=== PATIENT | male | born 1980 | race Caucasian/White ===

== ENCOUNTER 2019-05-01 11:10 | Emergency (ER) | payer BC ==
[2019-05-01] MEDS ORDERED: Sodium Chloride 0.9% 10 ML Syringe FLUSH PRN (11:13)
[2019-05-01] MEDS ORDERED: diphenhydrAMINE 50 MG/ML SDV IVPUSH ONE (11:13)
[2019-05-01] MEDS ORDERED: methylPREDNISolone Sodium Succinate 125 MG/2 ML SDV IVPUSH ONE (11:13)
[2019-05-01 15:21] VITALS: PULSE 90
[2019-05-01 15:34] VITALS: BP 129/72
--- NOTE | 2019-05-01 15:46 | EDM.PDOC ---
ED HPI GENERAL MEDICAL PROBLEM - General Chief Complaint: Allergic Reaction Stated Complaint: MEDICAL [facility] Time Seen by Provider: 05/01/19 11:13 Source of Information: Reports: Patient, EMS History Limitations: Reports: Altered Mental Status - History of Present Illness INITIAL COMMENTS - FREE TEXT/NARRATIVE: This patient was stung by a bee or wasp on the back of the neck shortly before coming in. He believes he was having an anaphylactic reaction and so gave himself to EpiPen injections. When EMS arrived they gave him Benadryl 25 mg IM. The patient when he arrived did relate that in the past when he had a bee sting reaction he became pretty much unresponsive. 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 Occipital Pain Score (Numeric/FACES): 8 - Related Data Allergies Allergy/AdvReac Type Severity Reaction Status Date / Time venom-honey bee Allergy Severe Anaphylactic Verified 11/10/16 13:02 [bee venom (honey bee)] Shock Home Meds: Home Meds Omeprazole 20 mg PO DAILY 04/18/16 [History] Past Medical History Gastrointestinal History: Reports: GERD - Past Surgical History GI Surgical History: Reports: Appendectomy Musculoskeletal Surgical History: Reports: Other (See Below) Dermatological Surgical History: Reports: Skin Graft, Other (See Below) Social & Family History - Tobacco Use Smoking Status *Q: Never Smoker - Caffeine Use Caffeine Use: Reports: Coffee - Recreational Drug Use Recreational Drug Use: No ED ROS ALLERGIC REACTION - Review of Systems Review Of Systems: Unable To Obtain (Patient is to listless and sedated to give her good review of systems) ED EXAM GENERAL NO PERIP PULSE - Physical Exam Exam: See Below Exam Limited By: Altered Mental Status General Appearance: Other (This patient seems listless and that even lethargic. He seems to be moderately sedated. However at times he is lying there with his eyes closed carrying on a conversation with the nurses. At other times when I examined him he barely responds to me at all. He said he can't open his eyes. I examined him by not forcing his) Eye Exam: Bilateral Eye: Conjunctival Injection, PERRL (Eyelids open. Pupils) Ears: Normal External Exam Nose: Normal Inspection Throat/Mouth: Normal Oropharynx (This very difficult to examine the pharynx because the patient won't open his mouth and fights me when I tried to do this with a tongue depressor) Head: Atraumatic Neck: Normal Inspection Respiratory/Chest: Lungs Clear Cardiovascular: Regular Rate, Rhythm, No Murmur GI/Abdominal: Non-Tender Back Exam: Normal Inspection Extremities: Normal Inspection Neurological: CN II-XII Intact, No Motor/Sensory Deficits, Other (Initially this patient seemed to be very lethargic but it would respond in conversation to the nurses. Later on he sitting up in bed he's had something to eat and seems to be pretty much a normal person) Skin Exam: Warm, Other (No obvious urticaria) Course - Vital Signs Last Recorded V/S: Last Vital Signs Temp 35.3 C 05/01/19 11:27 Pulse 90 05/01/19 13:10 Resp 20 05/01/19 15:10 BP 129/72 05/01/19 15:10 Pulse Ox 92 L 05/01/19 13:10 - Orders/Labs/Meds Orders: Active Orders 24 hr Category Date Time Status Saline Lock Insert [OM.PC] Urgent Oth 05/01/19 11:13 Ordered Labs: Laboratory Tests 05/01/19 05/01/19 Range/Units 12:50 12:50 WBC 14.8 H (4.5-11.0) K/uL RBC 5.16 (4.30-5.90) M/uL Hgb 15.2 H (12.0-15.0) g/dL Hct 44.5 (40.0-54.0) % MCV 86 (80-98) fL MCH 30 (27-31) pg MCHC 34 (32-36) % Plt Count 291 (150-400) K/uL Neut % (Auto) 86 H (36-66) % Lymph % (Auto) 11 L (24-44) % Cottle % (Auto) 4 (2-6) % Eos % (Auto) 0 L (2-4) % Baso % (Auto) 0 (0-1) % Sodium 143 (140-148) mmol/L Potassium 4.3 (3.6-5.2) mmol/L Chloride 106 (100-108) mmol/L Carbon Dioxide 27 (21-32) mmol/L Anion Gap 9.9 (5.0-14.0) mmol/L BUN 16 (7-18) mg/dL Creatinine 1.4 H (0.8-1.3) mg/dL Est Cr Clr Drug Dosing 68.05 mL/min Estimated GFR (MDRD) 57 L (>60) Glucose 134 H (74-106) mg/dL Calcium 8.9 (8.5-10.1) mg/dL Total Bilirubin 0.3 (0.2-1.0) mg/dL AST 34 (15-37) U/L ALT 67 (12-78) U/L Alkaline Phosphatase 65 (46-116) U/L Total Protein 7.2 (6.4-8.2) g/dL Albumin 3.8 (3.4-5.0) g/dL Globulin 3.4 (2.3-3.5) g/dL Albumin/Globulin Ratio 1.1 L (1.2-2.2) Meds: Medications Discontinued Medications Generic Name Dose Route Start Last Admin Trade Name Freq PRN Reason Stop Dose Admin Diphenhydramine HCl 50 mg 05/01/19 11:13 05/01/19 11:29 Benadryl IVPUSH 05/01/19 11:14 50 mg ONETIME ONE Administration Methylprednisolone Sodium Succinate 125 mg 05/01/19 11:13 05/01/19 11:29 Solu-Medrol IVPUSH 05/01/19 11:14 125 mg ONETIME ONE Administration Sodium Chloride 10 ml 05/01/19 11:13 05/01/19 11:30 Saline Flush FLUSH 10 ml ASDIRECTED PRN Administration Keep Vein Open - Re-Assessments/Exams Free Text/Narrative Re-Assessment/Exam: 05/01/19 16:42 This patient received an additional 50 mg of Benadryl. He previously had received just 25 mg IM by EMS. He also received Solu-Medrol 125 mg IV. He did not require any further epinephrine. At no point did I notice any kind of a skin rash or other evidence of urticaria. He never had any wheezing and he never had any type of pharyngeal edema or swelling of the hands or face. Departure - Departure Time of Disposition: 15:45 Disposition: Home, Self-Care 01 Clinical Impression: Bee sting-induced anaphylaxis - Discharge Information Instructions: Anaphylactic Reaction, Adult, [id number] Referrals: PCP,None [Primary Care Provider] - Forms: ED Department Discharge Additional Instructions: Take the pills in the Medrol Dosepak as directed. It would be a good idea to take Benadryl 25 or 50 mg 3 or 4 times a day for the next couple of days until all of the poisons is out of your system. - My Orders Last 24 Hours: My Active Orders 05/01/19 11:13 Saline Lock Insert [OM.PC] Urgent - Assessment/Plan Last 24 Hours: My Active Orders 05/01/19 11:13 Saline Lock Insert [OM.PC] Urgent
== END 2019-05-01 16:00 | disposition home or self-care (01) ==
LOC: JP.ED 11:10
DX: T63.441A Toxic effect of venom of bees, accidental (unintentional), initial encounter (principal); K21.9 Gastro-esophageal reflux disease without esophagitis; Z79.899 Other long term (current) drug therapy; Z90.49 Acquired absence of other specified parts of digestive tract
CPT/HCPCS: 36415; 80053; 85025; 96374; 96375; 99283; J1200; J2930

== ENCOUNTER 2020-03-06 11:24 | Emergency (ER) | payer BC ==
--- NOTE | 2020-03-06 11:30 | EDM.PDOC ---
ED HPI GENERAL MEDICAL PROBLEM - General Chief Complaint: Allergic Reaction Stated Complaint: BEE STING Time Seen by Provider: 03/06/20 11:27 Source of Information: Reports: Patient, Old Records History Limitations: Reports: No Limitations - History of Present Illness INITIAL COMMENTS - FREE TEXT/NARRATIVE: 39 yo male with a pHx of bee sting allergy was stung about 5 min ago on the L lateral/lower abdomen. No self tx before arrival. No current sx's of allergy. Onset: Today Onset Date: 03/06/20 Duration: Minutes: Location: Reports: Abdomen (L lateral/lower) Quality: Reports: Other (none) Severity: Mild Improves with: Reports: None Worsens with: Reports: None Context: Reports: Other (See HPI) Associated Symptoms: Reports: No Other Symptoms Treatments [employer]: Reports: Other (see below) (none) Headache Pain Score (Numeric/FACES): 8 - Related Data Allergies Allergy/AdvReac Type Severity Reaction Status Date / Time venom-honey bee Allergy Severe Anaphylactic Verified 11/10/16 13:02 [bee venom (honey bee)] Shock iv contrast Allergy Headache Uncoded 03/06/20 11:33 Home Meds: Home Meds Omeprazole 20 mg PO DAILY 04/18/16 [History] Albuterol Sulfate [Albuterol Sulfate Hfa] 8.5 gm IH ASDIRECTED 03/06/20 [History ] Budesonide/Formoterol [Symbicort 160-4.5 MCG] 2 puff IN BID 03/06/20 [History] DULoxetine [Cymbalta] 20 mg PO DAILY 03/06/20 [History] Montelukast [Singulair] 10 mg PO DAILY 03/06/20 [History] Past Medical History Gastrointestinal History: Reports: GERD - Past Surgical History GI Surgical History: Reports: Appendectomy Musculoskeletal Surgical History: Reports: Other (See Below) Dermatological Surgical History: Reports: Skin Graft, Other (See Below) Social & Family History - Caffeine Use Caffeine Use: Reports: Coffee ED ROS ALLERGIC REACTION - Review of Systems Review Of Systems: See Below Constitutional: Reports: No Symptoms HEENT: Reports: No Symptoms Respiratory: Reports: No Symptoms Musculoskeletal: Reports: No Symptoms Skin: Reports: No Symptoms ED EXAM GENERAL NO PERIP PULSE - Physical Exam Exam: See Below Exam Limited By: No Limitations General Appearance: Alert, WD/WN, No Apparent Distress, Obese Eye Exam: Bilateral Eye: Normal Inspection Ears: Normal External Exam, Normal Canal, Hearing Grossly Normal Nose: Normal Inspection, No Blood Throat/Mouth: Normal Inspection, Normal Lips, Normal Oropharynx, Normal Voice, No Airway Compromise Head: Atraumatic, Normocephalic Neck: Normal Inspection Respiratory/Chest: No Respiratory Distress, Lungs Clear, Normal Breath Sounds, No Accessory Muscle Use. No: Respiratory Distress, Wheezing Cardiovascular: Regular Rate, Rhythm, No Edema Extremities: Normal Inspection Neurological: Alert, Oriented, CN II-XII Intact, Normal Cognition, No Motor/ Sensory Deficits Psychiatric: Normal Affect, Normal Mood Skin Exam: Warm, Dry, Intact, Normal Color, No Rash, Other (No visible sign of swelling or redness even at the sting site.) Course - Vital Signs Last Recorded V/S: Last Vital Signs Temp 36.4 C 03/06/20 11:27 Pulse 67 03/06/20 11:53 Resp 16 03/06/20 11:53 BP 144/85 H 03/06/20 11:53 Pulse Ox 95 03/06/20 11:53 - Orders/Labs/Meds Meds: Medications Discontinued Medications Generic Name Dose Route Start Last Admin Trade Name Freq PRN Reason Stop Dose Admin Ketorolac Tromethamine 60 mg 03/06/20 11:46 03/06/20 11:50 Toradol IM 03/06/20 11:47 60 mg ONETIME ONE Administration - Re-Assessments/Exams Free Text/Narrative Re-Assessment/Exam: 03/06/20 11:45 Reassessment after 15 min revealed no signs of allergic reaction. Does complain of a MATUTE now, will give Toradol IM for that. Free Text/Narrative Re-Assessment/Exam: 03/06/20 12:22 MATUTE improving, OK with going home. Departure - Departure Time of Disposition: 12:22 Disposition: Home, Self-Care 01 Condition: Good Clinical Impression: Bee sting Qualifiers: Encounter type: initial encounter Injury intent: accidental or unintentional Qualified Code(s): T63.441A - Toxic effect of venom of bees, accidental ( unintentional), initial encounter - Discharge Information *PRESCRIPTION DRUG MONITORING PROGRAM REVIEWED*: Not Applicable *COPY OF PRESCRIPTION DRUG MONITORING REPORT IN PATIENT JEFF: Not Applicable Referrals: PCP,None [Primary Care Provider] - Forms: ED Department Discharge Additional Instructions: Take diphenhydramine up to 75 mg right away at the first sign of bee sting or allergy symptoms. Return to be seen for worsening of symptoms of allergy. See your provider to discuss a plan for an EPI Pen if you have not already done so. Acetaminophen up to 1000 mg every 6 hrs as needed for pain or MATUTE relief. Sepsis Event Note - Focused Exam Vital Signs: Vital Signs Temp Pulse Resp BP Pulse Ox 03/06/20 11:53 67 16 144/85 H 95 03/06/20 11:27 36.4 C 77 18 139/87 96 Date Exam was Performed: 03/06/20 Time Exam was Performed: 12:22
[2020-03-06] MEDS ORDERED: Ketorolac 60 MG/2 ML SDV IM ONE (11:46)
[2020-03-06 13:06] VITALS: BP 141/93; PULSE 62
== END 2020-03-06 13:06 | disposition home or self-care (01) ==
LOC: JP.ED 11:24
DX: T63.441A Toxic effect of venom of bees, accidental (unintentional), initial encounter (principal); Z91.030 Bee allergy status; Z91.041 Radiographic dye allergy status; K21.9 Gastro-esophageal reflux disease without esophagitis; Z79.899 Other long term (current) drug therapy
CPT/HCPCS: 96372; 99283; J1885

== ENCOUNTER 2023-01-27 21:41 | Emergency (ER) | payer BC ==
[2023-01-27 23:13] LABS: ESTIMATED GFR 86 mL/min (>60)
[2023-01-27 23:21] VITALS: BP 136/89; PULSE 77
[2023-01-27] MEDS ORDERED: Alum Hydrox/Mag Hydrox/Simeth 15 ML, Lidocaine 2% 15 ML PO ONE ×2 (23:59)
== END 2023-01-28 00:53 | disposition home or self-care (01) ==
LOC: JP.ED 21:41
DX: R07.89 Other chest pain (principal); K21.9 Gastro-esophageal reflux disease without esophagitis; Z91.030 Bee allergy status; Z91.041 Radiographic dye allergy status; Z79.899 Other long term (current) drug therapy; Z79.82 Long term (current) use of aspirin; Z87.891 Personal history of nicotine dependence
CPT/HCPCS: 36415; 71045; 71045-26; 76705; 80053; 81001; 82150; 83690; 84443; 84484; 85025; 93010; 99283; 99285; A9270-GY

== ENCOUNTER 2023-04-14 14:40 | Emergency (ER) | payer BC ==
[2023-04-14] MEDS ORDERED: methylPREDNISolone Sodium Succinate 125 MG/2 ML SDV IVPUSH ONE (14:49)
[2023-04-14] MEDS ORDERED: diphenhydrAMINE 50 MG/ML SDV IVPUSH ONE (14:49)
[2023-04-14] MEDS ORDERED: EPINEPHrine 1 MG/ML SDV IM ONE (14:49)
[2023-04-14 16:34] VITALS: BP 124/75; PULSE 96
== END 2023-04-14 16:50 | disposition home or self-care (01) ==
LOC: JP.ED 14:40
DX: T63.441A Toxic effect of venom of bees, accidental (unintentional), initial encounter (principal); J45.909 Unspecified asthma, uncomplicated; K21.9 Gastro-esophageal reflux disease without esophagitis; E66.9 Obesity, unspecified; Z68.38 Body mass index [BMI] 38.0-38.9, adult; Z87.891 Personal history of nicotine dependence; Z91.030 Bee allergy status; Z91.041 Radiographic dye allergy status; Z79.82 Long term (current) use of aspirin; Z79.899 Other long term (current) drug therapy
CPT/HCPCS: 96372; 96374; 96375; 99283; J0171; J1200; J2930